=== PATIENT | male | born 1960 | race American Indian/Alaskan Native ===

== ENCOUNTER 2020-01-15 16:45 | Emergency (ER) | payer BC ==
[2020-01-15 17:25] VITALS: BP 134/85
--- NOTE | 2020-01-15 17:33 | Emergency Department Report ---
Blank Doc - Documentation Documentation: 59-year-old male that presents with right eye pain with foreign body senastion. This initial assessment/diagnostic orders/clinical plan/treatment(s) is/are subject to change based on patient's health status, clinical progression and re- assessment by fellow clinical providers in the ED. Further treatment and workup at subsequent clinical providers discretion. Patient/guardians urged not to elope from the ED as their condition may be serious if not clinically assessed and managed. Initial orders include: 1- Patient sent to [facility] for further evaluation and treatment
[2020-01-15] MEDS ORDERED: FLUORESCEIN 1 MG STRIP OP ONE ×2 (19:20→19:21)
--- NOTE | 2020-01-15 19:33 | Emergency Department Report ---
Eye Injury/Foreign Body - HPI Eye Location: Right Severity: Moderate Eye Symptoms: Eye Pain: Yes, Blurred Vision: No, Eye Redness: Yes, Used Eye Protection: No, Contact Lens Use: No, Recalls Injury: Yes, Photophobia: No Other History: 59-year-old male that presents with right eye pain with foreign body senastion. States he was drilling through metal sheet and got metal shaving to right eye. now with foreign body sensation, no drainage no bleeding, no photophobia, no headache or dizziness, no loss of vision, no swelling. no relieving factor. ED Review of Systems ROS: Stated complaint: FB IN RT EYE Other details as noted in HPI Constitutional: denies: chills, fever Eyes: eye pain, other (foreign body right eye ) ENT: denies: ear pain, throat pain Respiratory: denies: cough, shortness of breath, wheezing Cardiovascular: denies: chest pain, palpitations Endocrine: no symptoms reported Gastrointestinal: denies: abdominal pain, nausea, diarrhea Genitourinary: denies: urgency, dysuria Musculoskeletal: denies: back pain, joint swelling, arthralgia Skin: denies: rash, lesions Neurological: denies: headache, weakness, paresthesias Psychiatric: denies: anxiety, depression Hematological/Lymphatic: denies: easy bleeding, easy bruising ED Past Medical Hx - Past Medical History Previous Medical History?: No Additional medical history: prostate CA (remission 10 yrs) - Surgical History Past Surgical History?: Yes Additional Surgical History: Prostate - Social History Smoking Status: Current Every Day Smoker - Medications Home Medications: Home Medications Medication Instructions Recorded Confirmed Last Taken Type Cyclobenzaprine [Flexeril 10mg] 10 mg PO TID PRN #30 tablet 04/12/14 Unknown Rx HYDROcodone/APAP 5-325 [[place] 1 each PO Q6HR PRN #20 tablet 04/12/14 Unknown Rx 5-325 mg TAB] Ibuprofen [Motrin] 600 mg PO Q8H PRN #50 tablet 04/12/14 Unknown Rx Ketotifen Fumarate [Zaditor] 2 drop OP BID #5 ml 01/15/20 Unknown Rx Polymyxin B Sulf/Trimethoprim 2 drops OP Q3H 7 Days #10 ml 01/15/20 Unknown Rx [Polytrim Eye Drops] Eye Injury Exam - Exam General: Vital signs noted. No distress. Alert and acting appropriately. pt a/ox 3, perrla, eomi, mild right conjunctivae erythema, no drainage, visual acuity 20/30 bilat , no visible foreign body. there is no resp distress , lungs clear, bilat, cv: S1S2, no murmur, rub, click, abd soft nontender, bs normal, musc: normal rom, no pain, ED Course Vital Signs 01/15/20 17:21 Temperature 98.0 F Pulse Rate 63 Respiratory 18 Rate Blood Pressure 134/85 O2 Sat by Pulse 100 Oximetry - Eye Procedure Alcaine Drops Administered: Yes (tetracain drop x 2) Eye FB Removal: removal w/ cotton swab Eye Irrigated w/ Saline (ccs): 10 Cyclogel 2 Drops Administered: right eye Antibiotic Oinment/Drps Admin: right eye Progress: Right eye anesthesia with tetracaine x2 drops, fluorescein stain exam revealed Wood's lamp, no foreign body noted, mild corneal abrasion at 6:00 less than 1 centimeter, eyelids inverted and swept, irrigated with 10 cc sterile saline, foreign body sensation is relieved to 0/10 ,visual acuity 20/30 bilaterally EOMI, PERRLA, mild conjunctival erythema, patient tolerated procedure with minimal distress, patient given aftercare instructions. ED Medical Decision Making - Medical Decision Making corneal abrasion straight forward, no foreign body, perrla, eomi, symptoms resolved, plan: dc to home abx eye drops, anthistamine, follow up with opthalmology tomorrow. pt verbalized agreement and understanding of discharge plan, pt dc'd to home in stable condition at this time. Critical care attestation.: If time is entered above; I have spent that time in minutes in the direct care of this critically ill patient, excluding procedure time. ED Disposition Clinical Impression: Corneal abrasion, right Qualifiers: Encounter type: initial encounter Qualified Code(s): S05.01XA - Injury of conjunctiva and corneal abrasion without foreign body, right eye, initial en counter Disposition: DC-01 TO HOME OR SELFCARE Is pt being admited?: No Does the pt Need Aspirin: No Condition: Stable Instructions: Corneal Abrasion Prescriptions: Polymyxin B Sulf/Trimethoprim [Polytrim Eye Drops] 2 drops OP Q3H 7 Days #10 ml Ketotifen Fumarate [Zaditor] 2 drop OP BID #5 ml Referrals: ALIE HUGHES MD [Staff Physician] - 3-5 Days Forms: Work/School Release Form(ED) Time of Disposition: 19:42
== END 2020-01-15 19:45 | disposition home or self-care (01) ==
LOC: ED 16:45
DX: S05.01XA Injury of conjunctiva and corneal abrasion without foreign body, right eye, initial encounter (principal); F17.200 Nicotine dependence, unspecified, uncomplicated; Z79.1 Long term (current) use of non-steroidal anti-inflammatories (NSAID); Z79.899 Other long term (current) drug therapy; X58.XXXA Exposure to other specified factors, initial encounter; Y93.89 Activity, other specified; Y92.89 Other specified places as the place of occurrence of the external cause; Y99.8 Other external cause status